=== PATIENT | female | born 1965 | race Caucasian/White ===

== ENCOUNTER 2018-07-25 04:46 | Emergency (ER) | payer OTHER ==
[~2018-07-25] VITALS: Ht 167.6 cm; Wt 85.3 kg
[2018-07-25] MEDS ORDERED: SERTRALINE HCL25 MG ORAL (04:49)
[2018-07-25] MEDS ORDERED: XANAX0.25 MG ORAL (04:49)
[2018-07-25] MEDS ORDERED: LOSARTAN-HCTZ1 EAC2 ORAL (04:49)
[2018-07-25] MEDS ORDERED: NAPROXEN500 M2 ORAL (04:49)
[2018-07-25] MEDS ORDERED: MICROGESTIN 241 EACH PO (04:53)
[2018-07-25] MEDS ORDERED: Ketorolac 30mg Inj IV ONE (05:00)
[2018-07-25] MEDS ORDERED: Methocarbamol 750mg tab ORAL ONE (05:00)
--- NOTE | 2018-07-25 05:00 | NUR ---
ED Nurse Note: RECIEVED PT MANNY FROM HOME WITH C/O LOWER BACK PAIN AT 10/10, PT STATES HAS BEEN HAVING PAIN SINCE AM, SHE TOOK HER PRESCRIBED MEDS AND PAIN HAS WORSENED DURING THE DAY AND AWAKENED HER TONIGHT AT 1010, PT DENIES INJURY AND HAS HX OF SCIATICA, PT IS AWAKE, ALERT AND ORIENTED X 4, WILL RESUME CARE ORDERED AND CONTINUE TO CLOSELY MONITOR.
[2018-07-25 05:36] LABS: BASOPHILS % (AUTO) 1.1 % (0.0-2.0); EOSINOPHILS % (AUTO) 4.9 % (0.0-3.0); HEMATOCRIT 38.5 % (37.0-47.0); HEMOGLOBIN 12.9 G/DL (12.0-16.0); LYMPHOCYTES % (AUTO) 19.3 % (20.0-45.0); MEAN CORPUSCULAR VOLUME 86 FL (80-99); MONOCYTES % (AUTO) 12.8 % (1.0-10.0); NEUTROPHILS % (AUTO) 61.9 % (45.0-75.0); PLATELET COUNT 270 K/UL (150-450); RED CELL DISTRIBUTION WIDTH 13.6 % (11.6-14.8)
[2018-07-25 05:42] LABS: APPEARANCE,URINE CLEAR; BILIRUBIN, URINE NEGATIVE (NEGATIVE); COLOR,URINE PALE YELLOW; GLUCOSE, URINE (UA) NEGATIVE (NEGATIVE); KETONES,URINE NEGATIVE (NEGATIVE); LEUKOCYTE ESTERASE ,URINE NEGATIVE (NEGATIVE); NITRITE,URINE NEGATIVE (NEGATIVE); PH,URINE 6 (4.5-8.0); PROTEIN,URINE NEGATIVE (NEGATIVE); UROBILINOGEN,URINE NORMAL MG/DL (0.0-1.0)
--- NOTE | 2018-07-25 05:50 | Emergency Room Report ---
History of Present Illness General Chief Complaint: Back Pain-No Injury Source: Patient Present Illness HPI 52-year-old female presents ED for evaluation. Brought in by EMS complaining of back pain. States she's had chronic back pain on and off for years but got worse yesterday. Pain is sharp, 10 out of 10, radiating down the buttock and around the hip. Denies bladder or bladder incontinence. Denies dysuria or hematuria. Denies flank pain. Denies leg or motor weakness. Took Naprosyn and Flexeril without significant relief. No other aggravating relieving factors. Denies any other associated symptoms Allergies: Coded Allergies: No Known Allergies (Unverified , 07/25/18) Patient History Past Medical History: psych hx, other - back pain Past Surgical History: none Pertinent Family History: none Social History: Denies: smoking, alcohol use, drug use Now: No Immunizations: UTD Reviewed Nursing Documentation: PMH: Agreed; PSxH: Agreed Nursing Documentation-PMH Hx Hypertension: Yes Hx Neurological Problems: Yes - back pain Review of Systems All Other Systems: negative except mentioned in HPI Physical Exam Vital Signs Date Time Temp Pulse Resp B/P (MAP) Pulse Ox O2 Delivery O2 Flow Rate FiO2 07/25/18 04:33 98.2 97 18 160/96 100 Room Air Sp02 EP Interpretation: reviewed, normal General Appearance: no apparent distress, alert, GCS 15, non-toxic Head: normocephalic, atraumatic Eyes: bilateral eye normal inspection, bilateral eye PERRL ENT: hearing grossly normal, normal pharynx, no angioedema, normal voice Neck: full range of motion, supple/symm/no masses Respiratory: chest non-tender, lungs clear, normal breath sounds, speaking full sentences Cardiovascular #1: regular rate, rhythm, no edema Cardiovascular #2: 2+ carotid (R), 2+ carotid (L), 2+ radial (R), 2+ radial (L) , 2+ dorsalis pedis (R), 2+ dorsalis pedis (L) Gastrointestinal: normal bowel sounds, non tender, soft, non-distended, no guarding, no rebound Rectal: deferred Genitourinary: normal inspection, no CVA tenderness Musculoskeletal: gait/station normal, normal range of motion, non-tender, tender - paraspinal lumbar tenderness Neurologic: alert, oriented x3, responsive, motor strength/tone normal, sensory intact, speech normal Psychiatric: judgement/insight normal, memory normal, mood/affect normal, no suicidal/homicidal ideation Reflexes: 3+ bicep (R), 3+ bicep (L), 3+ tricep (R), 3+ tricep (L), 3+ knee (R) , 3+ knee (L) Skin: normal color, no rash, warm/dry, well hydrated Lymphatic: no adenopathy Medical Decision Making Diagnostic Impression: Primary Impression: Back pain Qualified Codes: M54.5 - Low back pain ER Course Hospital Course 52-year-old F presents to ED with R lower pain Differential diagnosis includes- muscle strain, sciatica, kidney stone Clinical course Patient placed on stretcher. After initial history and physical I ordered labs , pain meds, UA Labs - no leukocytosis, elecrolytes ok, LFTs normal, UA no blood Upon reassessment, patient states pain has improved. My suspicion for kidney stone is low. Pain is likely muscular. Safe for discharge and close outpatient follow-up. Patient states she has a PMD I feel this is a highly complex case requiring extensive working including EKG/ Rhythm strip, Xray/CT/US, Blood/urine lab work, repeat exams while in ED, and administration of strong opiates/narcotics for pain control, admission to hospital or close patient follow up. Diagnosis - back pain Stable and discharged to home with Rx Motrin, robaxin, lidoderm, zantac. Followup with PMD. Return to ED if symptoms recur or worsen Labs Test 07/25/18 05:05 White Blood Count 7.0 K/UL (4.8-10.8) Red Blood Count 4.50 M/UL (4.20-5.40) Hemoglobin 12.9 G/DL (12.0-16.0) Hematocrit 38.5 % (37.0-47.0) Mean Corpuscular Volume 86 FL (80-99) Mean Corpuscular Hemoglobin 28.6 PG (27.0-31.0) Mean Corpuscular Hemoglobin Concent 33.5 G/DL (32.0-36.0) Red Cell Distribution Width 13.6 % (11.6-14.8) Platelet Count 270 K/UL (150-450) Mean Platelet Volume 7.1 FL (6.5-10.1) Neutrophils (%) (Auto) 61.9 % (45.0-75.0) Lymphocytes (%) (Auto) 19.3 % (20.0-45.0) Monocytes (%) (Auto) 12.8 % (1.0-10.0) Eosinophils (%) (Auto) 4.9 % (0.0-3.0) Basophils (%) (Auto) 1.1 % (0.0-2.0) Urine Color Pale yellow Urine Appearance Clear Urine pH 6 (4.5-8.0) Urine Specific [place] 1.010 (1.005-1.035) Urine Protein Negative (NEGATIVE) Urine Glucose (UA) Negative (NEGATIVE) Urine Ketones Negative (NEGATIVE) Urine Blood Negative (NEGATIVE) Urine Nitrite Negative (NEGATIVE) Urine Bilirubin Negative (NEGATIVE) Urine Urobilinogen Normal MG/DL (0.0-1.0) Urine Leukocyte Esterase Negative (NEGATIVE) Sodium Level 136 MMOL/L (136-145) Potassium Level 4.4 MMOL/L (3.5-5.1) Chloride Level 103 MMOL/L (98-107) Carbon Dioxide Level 25 MMOL/L (21-32) Anion Gap 8 mmol/L (5-15) Blood Urea Nitrogen 13 mg/dL (7-18) Creatinine 0.7 MG/DL (0.55-1.30) Estimat Glomerular Filtration Rate > 60 mL/min (>60) Glucose Level 98 MG/DL (74-106) Calcium Level 8.2 MG/DL (8.5-10.1) Total Bilirubin 0.3 MG/DL (0.2-1.0) Aspartate Amino Transf (AST/SGOT) 24 U/L (15-37) Alanine Aminotransferase (ALT/SGPT) 24 U/L (12-78) Alkaline Phosphatase 52 U/L (46-116) Total Protein 6.6 G/DL (6.4-8.2) Albumin 3.2 G/DL (3.4-5.0) Globulin 3.4 g/dL Albumin/Globulin Ratio 0.9 (1.0-2.7) Lipase 136 U/L (73-393) Last Vital Signs Date Time Temp Pulse Resp B/P (MAP) Pulse Ox O2 Delivery O2 Flow Rate FiO2 07/25/18 04:33 98.2 97 18 160/96 100 Room Air Status: improved Disposition: HOME, SELF-CARE Condition: Stable Scripts Ranitidine Hcl* (ZANTAC*) 150 Mg Tablet 150 MG ORAL TWICE A DAY, #30 TAB Prov: Ramos Fung MD 07/25/18 Lidocaine (Lidoderm) 1 Each Adh..patch 1 PATCH TOPIC DAILY, #7 PATCH 0 Refills Patch(es) may remain in place for up to 12 hours in any 24-hour period. Prov: Ramos Fung MD 07/25/18 Methocarbamol* (ROBAXIN-750*) 750 Mg Tablet 750 MG PO TID, #21 TAB 0 Refills Prov: Ramos Fung MD 07/25/18 Ibuprofen* (MOTRIN*) 600 Mg Tablet 600 MG ORAL Q8H PRN for For Pain, #30 TAB 0 Refills Prov: Ramos Fung MD 07/25/18 Referrals: NON PHYSICIAN (PCP) Ramos Fung MD Jul 25, 2018 05:50
[2018-07-25 05:57] LABS: ANION GAP 8 mmol/L (5-15); BLOOD UREA NITROGEN 13 mg/dL (7-18); CALCIUM 8.2 MG/DL (8.5-10.1); CARBON DIOXIDE 25 MMOL/L (21-32); CHLORIDE 103 MMOL/L (98-107); CREATININE 0.7 MG/DL (0.55-1.30); POTASSIUM 4.4 MMOL/L (3.5-5.1); SODIUM 136 MMOL/L (136-145)
[2018-07-25 06:00] LABS: ALANINE AMINOTRANSFERASE 24 U/L (12-78); ALBUMIN 3.2 G/DL (3.4-5.0); ALBUMIN/GLOBULIN RATIO 0.9 (1.0-2.7); ALKALINE PHOSPHATASE 52 U/L (46-116); ASPARTATE AMINO TRANSFERASE 24 U/L (15-37); BILIRUBIN,TOTAL 0.3 MG/DL (0.2-1.0)
[2018-07-25] MEDS ORDERED: ROBAXIN-750750 MG PO (06:42)
[2018-07-25] MEDS ORDERED: IBUPROFEN600 MG ORAL (06:42)
[2018-07-25] MEDS ORDERED: LIDODERM700 M1 TOPIC (06:42)
[2018-07-25 06:45] VITALS: BP 141/82
[2018-07-25] MEDS ORDERED: RANITIDINE HCL150 MG ORAL (06:47)
--- NOTE | 2018-07-25 07:10 | NUR ---
ED Nurse Note: PT BEING D/C TO HOME, AWAKE, ALERT AND ORIENTED X 4, AMBULATORY, NO CP, NO SOB, PT GIVEN F/U INFO AND AFTER CARE INSTRUCTIONS AND RE-VERBALIZES PROPER MEDICATION ADMINISTRATION, NAD NOTED DURING PT D/C TO HOME, IV LINE AND ARMBAND REMOVED WITHOUT COMPLICATIONS.
[2018-07-25 07:14] VITALS: BP 141/82
== END 2018-07-25 07:15 | disposition home or self-care (01) ==
LOC: EDBD 04:46 → EMR 05:34
DX: M54.5 Low back pain (principal); G89.29 Other chronic pain; I10 Essential (primary) hypertension
CPT/HCPCS: 36415; 80053; 81003; 83690; 85025; 96374; 99284; J1885

== ENCOUNTER 2020-01-02 08:23 | Emergency (ER) | payer OTHER ==
[~2020-01-02] VITALS: Ht 167.6 cm; Wt 90.7 kg
[~2020-01-02 08:23] MED LIST: IBUPROFEN600 MG ORAL; LIDODERM700 M1 TOPIC; LOSARTAN-HCTZ1 EAC2 ORAL; MICROGESTIN 241 EACH PO; NAPROXEN500 M2 ORAL; RANITIDINE HCL150 MG ORAL; ROBAXIN-750750 MG PO; SERTRALINE HCL25 MG ORAL; XANAX0.25 MG ORAL
[2020-01-02 08:30] VITALS: BP 140/92
--- NOTE | 2020-01-02 08:35 | NUR ---
ED Nurse Note: patiissac walked into ED from home c/o laceration around the left eye, mainly on the left upper eyelid. patient c/o blurry vision as well. patient is wearing glasses in the ED. patient reports laceration happened around 3AM this morning by her cat when she was sleeping. patient is alert awake x4 ambulatory breathing unlabored and even, speaking in full sentences. Dr. Fung at bedside.
[2020-01-02] MEDS ORDERED: Ampicillin/Sulbactam Sod 3 GM in NS 110 ML IVPB ONE (09:00)
[2020-01-02] MEDS ORDERED: Lidocaine 1% 10mg/ml/Epi 0.005mg/ml 30ml vial INJ ONE ×2 (09:15→09:30)
[2020-01-02] MEDS ORDERED: Lidocaine 1% Plain 30 ml INJ ONE (09:15)
--- NOTE | 2020-01-02 10:29 | NUR ---
ED Nurse Note: Dr. Lomeli at bedside.
[2020-01-02] MEDS ORDERED: Neosporin Oint Ud Pkt TOPIC ONE ×2 (11:00→11:02)
[2020-01-02] MEDS ORDERED: AUGMENTIN 875-1 EAC1 ORAL (11:21)
[2020-01-02] MEDS ORDERED: BACITRACIN15 GM TOPIC (11:21)
[2020-01-02 11:27] VITALS: BP 128/82
--- NOTE | 2020-01-02 11:27 | NUR ---
ER DISCHARGE NOTE: Patient is cleared to be discharged per ERMD Dr Fung, pt is aox4, on room air, with stable vital signs. pt was given dc and prescription instructions, pt was able to verbalize understanding, pt id band and iv site removed without complications. pt is able to ambulate with steady gait. pt took all belongings.
[2020-01-02 11:29] VITALS: BP 128/82
--- NOTE | 2020-01-02 11:38 | Emergency Room Report ---
History of Present Illness General Chief Complaint: Eye Problems Source: Patient Present Illness HPI 54-year-old female presents to ED with laceration to left eyelid. States that her cat jumped on her today and scratched her about the left eye. Tetanus updated recently. Denies any other injuries. Pain is dull, 6 out of 10, nonradiating. No other aggravating relieving factors. Denies any other associated symptoms Allergies: Coded Allergies: No Known Allergies (Unverified , 07/25/18) COVID-19 Screening Contact w/high risk pt: No Experienced COVID-19 symptoms?: No COVID-19 Testing performed PMO ANALYST: Yes COVID-19 Screening: Negative COVID-19 COVID-19 Testing Source: unknown Patient History Past Surgical History: none Pertinent Family History: none Social History: Denies: smoking, alcohol use, drug use Last Menstrual Period: 12/2018 Now: No Immunizations: UTD Reviewed Nursing Documentation: PMH: Agreed; PSxH: Agreed Nursing Documentation-PMH Past Medical History: No History, Except For Hx Hypertension: Yes Hx Neurological Problems: Yes - back pain Review of Systems All Other Systems: negative except mentioned in HPI Physical Exam Vital Signs Date Time Temp Pulse Resp B/P (MAP) Pulse Ox O2 Delivery O2 Flow Rate FiO2 01/02/20 08:30 96.3 80 18 140/92 (108) 95 Room Air Sp02 EP Interpretation: reviewed, normal General Appearance: no apparent distress, alert, GCS 15, non-toxic Head: normocephalic, atraumatic Eyes: right eye normal inspection; left eye other - 2cm laceration top of L upper eyelid; bilateral eye PERRL, bilateral eye EOMI ENT: hearing grossly normal, normal pharynx, no angioedema, normal voice Neck: full range of motion, supple/symm/no masses Respiratory: normal inspection Cardiovascular #1: normal inspection Gastrointestinal: normal inspection Rectal: deferred Genitourinary: adnexa normal Musculoskeletal: normal inspection Neurologic: alert, motor strength/tone normal, oriented x3, sensory intact, responsive, speech normal Psychiatric: normal inspection Skin: no rash Lymphatic: normal inspection Medical Decision Making Diagnostic Impression: Primary Impression: Eyelid laceration Qualified Codes: S01.112A - Laceration without foreign body of left eyelid and periocular area, initial encounter ER Course Hospital Course 54-year-old F presents to ED s/p laceration L eyelid from cat scratch Clinical course Patient placed on stretcher. After initial history and physical I discussed with Dr. Sy Lomeli who agreed to come and treat the patient Given IV Unasyn. Repaired without complication by plastics. Patient tolerated without complication. Discussed findings with patient. Will discharge home with bacitracin and Augmentin. Will follow up with Dr. Lomeli in his office Diagnosis - eyelid laceration Stable and discharged to home with prescription for Bacitracin, Augmentin. wound Care instructions given. Followup with plastics. Return to ED if any signs of infection develop Last Vital Signs Date Time Temp Pulse Resp B/P (MAP) Pulse Ox O2 Delivery O2 Flow Rate FiO2 01/02/20 11:29 96.3 72 18 128/82 95 Room Air Status: improved Disposition: HOME, SELF-CARE Condition: Stable Scripts Bacitracin (Bacitracin) 28.4 Gm Oint...g. 1 APPLIC TOPIC THREE TIMES A DAY, #28.4 GM Prov: Ramos Fung MD 01/02/20 Amoxicillin/Potassium Clav 875-125* (AUGMENTIN 875-125 TABLET*) 1 Each Tablet 1 TAB ORAL TWICE A DAY, #14 TAB Prov: Ramos Fung MD 01/02/20 Referrals: NON PHYSICIAN (PCP) Sy Lomeli MD Patient Instructions: Laceration Care, Adult, [id number] Ramos Fung MD Jan 02, 2020 11:38
--- NOTE | 2020-01-02 15:44 | Consultation ---
DATE OF CONSULTATION: 01/02/2020 REASON FOR THE CONSULTATION: A cat scratch to the left eyelid region. HISTORY OF PRESENT ILLNESS: This is a 54-year-old female, otherwise healthy, who was at home when her cat fell on her and scratched her left periorbital area, where she sustained significant lacerations to her upper and lower eyelids. There was significant bleeding on the scene. There was no other reported injury and she presented urgently to the emergency room for repair of her facial injuries. I was asked to evaluate the patient by the ER physician for repair of these injuries. PAST MEDICAL HISTORY: None. PAST SURGICAL HISTORY: Previous breast implant surgery as well as removal of breast implants and capsulectomies. ALLERGIES: None. MEDICATIONS: None. PHYSICAL EXAMINATION: GENERAL: The patient is alert and oriented x3. HEENT: Examination of the head and neck reveals a significant laceration to the left upper eyelid with exposed and divided orbicularis oculi muscles. The laceration measures 3.5 cm in length and there is a corresponding lower eyelid laceration measuring 2.5 cm with exposed orbicularis oculi muscle as well, but not to the degree as is noted in the upper eyelid. There is also a hanging piece of nonviable tissue on the lateral aspect of the laceration. HEART: Regular rate and rhythm. ABDOMEN: Soft, nontender, and nondistended. ASSESSMENT AND PLAN: This is a 54-year-old female with significant lacerations to her periorbital region involving both the upper and lower eyelids. She will require a complex closure repair of her lower eyelid laceration as well as an adjacent tissue transfer closure of her right upper eyelid. The patient understands this and agrees for us to proceed. Sy Lomeli M.D. DR: DOMINIQUE JOB#: [id number] CC: HARISH
--- NOTE | 2020-01-02 17:15 | Operative Note - Dictated ---
DATE OF OPERATION: 01/02/2020 PREOPERATIVE DIAGNOSES: 1. Complex laceration to the upper eyelid measuring 3.5 cm. 2. A complex laceration of the lower eyelid measuring 2.5 cm. POSTOPERATIVE DIAGNOSES: 1. Complex laceration to the upper eyelid measuring 3.5 cm. 2. A complex laceration of the lower eyelid measuring 2.5 cm. PROCEDURES: 1. Complex closure of right upper eyelid laceration measuring 3.5 cm. 2. Complex closure repair of lower eyelid laceration measuring 2.5 cm. SURGEON: Sy Lomeli M.D. ANESTHESIA: Local with 1% lidocaine and epinephrine. DISPOSITION: Stable to home. INDICATIONS FOR SURGERY: This is a 54-year-old female who sustained a significant facial injury after her cat fell onto her face where she sustained complex lacerations to her upper and lower eyelid on the left side. Both injuries had exposed orbicularis oculi muscle with more significant injury to the orbicularis muscle on the upper eyelid laceration. I explained to her the severity of her injuries and the need for plastic surgery repair and she understood the risks and benefits of the procedure and agreed to proceed. DETAILS OF THE OPERATION: The patient was laid supine on the procedure table. The left side of her face was prepped and draped in the sterile and usual fashion. A total of 5 mL of lidocaine with epinephrine was injected into the upper and lower eyelids. After 5 minutes elapsed and the anesthetic was massaged into the wound, we first began to explore and address the repair of the left lower eyelid laceration. As stated earlier, this measured approximately 2.5 cm. There was a lip of hanging skin tissue that was not amenable to primary incorporation into the laceration given the nonviability of it. As such, it had to be debrided. A tissue cutting scissor was used to cut this triangular piece of skin that was present within the wound. Following this debridement, the muscle was explored and there appeared to be no significant laceration of the muscle; it was just exposure of the muscle. Therefore, following the debridement of this, a complex closure of the wound was completed using a running 5-0 Prolene suture to reapproximate the skin edges at the correct level. We then turned our attention to the larger more significant upper eyelid laceration. This had severed orbicularis oculi muscle clearly present within the wound. Upon exploration of the wound, there was noted to be no foreign bodies present and the laceration measured 3.5 cm. Once this exploration was completed, we began by debriding some of the superficial tissues on either end of the laceration. Following the debridement of this tissue, we proceeded to perform a repair of the muscle using several interrupted 4-0 Vicryl sutures to allow for good reapproximation of the orbicularis oculi muscle. Once the muscle was well approximated, we then proceeded to repair the skin laceration using a subcuticular 4-0 Monocryl suture. Of note, the patient during the procedure was able to open and close her eyes suggesting that the levator palpebrae superioris muscle was intact and not injured as a result of this injury, and there was no evidence of ptosis on her exam either, so upon completion of the subcuticular closure, Dermabond was applied to the upper eyelid laceration and then following this, both lacerations following repair had Neosporin applied to them. Ice will be applied to the patient's eye following this, and the patient will follow up with me in my office in 7 to 10 days. She tolerated the procedure well. There were no complications. Sy Lomeli M.D. DR: DOMINIQUE JOB#: [id number] CC: HARISH
== END 2020-01-02 11:29 | disposition home or self-care (01) ==
LOC: EMR 08:50
DX: S01.112A Laceration without foreign body of left eyelid and periocular area, initial encounter (principal); W55.03XA Scratched by cat, initial encounter; Y92.009 Unspecified place in unspecified non-institutional (private) residence as the place of occurrence of the external cause; I10 Essential (primary) hypertension
CPT/HCPCS: 13152; 96365; 99284; J0295